=== PATIENT | male | born 1955 | race Caucasian/White ===

== ENCOUNTER 2017-09-03 11:37 | Inpatient (IN) | payer OTHER ==
[~2017-09-03] VITALS: Ht 190.5 cm; Wt 94.3 kg
[~2017-09-03 11:37] MED LIST: CLONAZEPAM0.5 MG GT; DOCU LIQUI50 MG/5 ML GT; DOXAZOSIN MESYLA2 MG GT; DUONEB 2.5-0.5 M3 ML AEROSOL; ESCITALOPRAM OX10 MG GT; HYDROMORPHONE HC2 MG PO; LABETALOL HCL100 MG GT; LISINOPRIL20 MG GT; LOSARTAN-HCTZ1 EACH PO; METRONIDAZOLE500 MG PO; MORPHINE SULFAT30 M1 PO; NICOTINE PATCH1 EAC1 TD; NOVOLOG PE100 UNITS/ SC; ONCE DAILY1 EACH PO; OXYCODONE HCL30 MG PO; ROCEPHIN 2 GM VI2 GM IM; VITAMIN D31000 UNI2 PO
[2017-09-03 12:56] LABS: BASOPHIL (%) 0.3 % (0-1); BASOPHIL COUNT 0.1 K/uL (0-0.1); EOSINOPHIL (%) 0 % (0-5); HEMATOCRIT 32.9 % (38.0-50.0); HEMOGLOBIN 10.2 G/DL (12.5-16.6); IMMATURE GRANULOCYTE (%) 0.5 % (0.0-0.7); LYMPHOCYTE (%) 6.6 % (15-42); LYMPHOCYTE COUNT 1.1 K/uL (1.0-2.8); MCH 27.2 PG (29.0-34.0); MCV 87.7 FL (86-99); MONOCYTE (%) 9.1 % (3-12); MONOCYTE COUNT 1.6 K/uL (0-0.8); NEUTROPHIL (%) 83.5 % (45-76); NEUTROPHIL COUNT 14.3 K/uL (1.8-6.4); PLATELET COUNT 356 K/uL (156-360); RBC DIS.WIDTH-CV 12.7 % (11.8-14.6); RBC DIS.WIDTH-SD 40.6 % (39-53); RED BLOOD COUNT 3.75 M/uL (4.00-5.50); WHITE BLOOD COUNT 17.1 K/uL (4.1-10.2)
[2017-09-03 13:03] LABS: ALBUMIN 2.8 g/dL (3.2-4.8); CHLORIDE 99 mEq/L (99-109); POTASSIUM 4.6 mEq/L (3.7-5.4); SODIUM 137 mEq/L (136-147)
[2017-09-03 13:06] LABS: TOTAL PROTEIN 7.6 g/dL (6.4-8.3)
[2017-09-03 13:08] LABS: TOTAL BILIRUBIN 0.4 mg/dL (0.0-1.0)
[2017-09-03 13:09] LABS: ALKALINE PHOSPHATASE 89 IU/L (3-129); CREATININE 0.8 mg/dL (0.6-1.3); GFR ESTIMATE (CALCULATED) > 59 mL/min/
[2017-09-03 13:10] LABS: UREA NITROGEN (BUN) 25 mg/dL (9-23)
[2017-09-03 13:11] LABS: AST (GOT) 12 IU/L (2-34)
[2017-09-03 13:12] LABS: ALT (GPT) 8 IU/L (3-49)
[2017-09-03 13:14] LABS: GLUCOSE 459 mg/dL (70-99)
[2017-09-03 14:01] LABS: APPEARANCE SL.HAZY ((CLEAR)); BILIRUBIN NEGATIVE; BLOOD MODERATE; COLOR YELLOW ((YELLOW)); GLUCOSE (STRIP) >=500; KETONES 5; LEUKOCYTES LARGE; NITRITE NEGATIVE; PROTEIN (STRIP) 30; SPECIFIC GRAVITY 1.022 (1.000-1.030)
[2017-09-03 14:18] LABS: EPITHELIAL CELLS NONE SEEN /HPF; MUCUS NONE SEEN /LPF; RED BLOOD CELLS 15-20 /HPF (0-5); WHITE BLOOD CELLS 30-40 /HPF (0-5)
[2017-09-03 14:19] LABS: BACTERIA RARE /HPF; UCUL ADDED? YES
[2017-09-03] MEDS ORDERED: ESCITALOPRAM OX10 MG PO (16:52)
[2017-09-03] MEDS ORDERED: SANTYL30 GM TP (16:53)
[2017-09-03] MEDS ORDERED: MORPHINE SULFAT30 M1 PO (16:54)
[2017-09-03] MEDS ORDERED: DOXAZOSIN MESYLA2 MG PO (16:55)
[2017-09-03] MEDS ORDERED: BASAGLAR K100 UNIT/1 SC (17:01)
[2017-09-03 20:35] VITALS: BP 132/63
[2017-09-03 23:41] VITALS: BP 105/58
[2017-09-04] VITALS (17 sets, daily range): BP systolic 85–143; BP diastolic 48–79
[2017-09-04 07:20] LABS: CHLORIDE 99 MEQ/L (99-109); CREATININE 0.8 MG/DL (0.6-1.3); GFR ESTIMATE (CALCULATED) > 59 mL/min/; GLUCOSE 285 mg/dL (70-99); POTASSIUM 4.5 MEQ/L (3.7-5.4); SODIUM 140 MEQ/L (136-147); UREA NITROGEN (BUN) 33 mg/dL (9-23)
[2017-09-04 07:26] LABS: BASOPHIL (%) 0.3 % (0-1); BASOPHIL COUNT 0.1 K/uL (0-0.1); EOSINOPHIL (%) 0 % (0-5); HEMATOCRIT 29.8 % (38.0-50.0); HEMOGLOBIN 8.9 G/DL (12.5-16.6); IMMATURE GRANULOCYTE (%) 0.4 % (0.0-0.7); LYMPHOCYTE COUNT 1.4 K/uL (1.0-2.8); MCH 27.1 PG (29.0-34.0); MCHC 29.9 G/DL (30.0-36.0); MCV 90.9 FL (86-99); MONOCYTE (%) 9.1 % (3-12); MONOCYTE COUNT 1.6 K/uL (0-0.8); NEUTROPHIL (%) 82.2 % (45-76); NEUTROPHIL COUNT 14.4 K/uL (1.8-6.4); PLATELET COUNT 372 K/uL (156-360); RBC DIS.WIDTH-CV 12.8 % (11.8-14.6); RBC DIS.WIDTH-SD 42.7 % (39-53); RED BLOOD COUNT 3.28 M/uL (4.00-5.50); WHITE BLOOD COUNT 17.5 K/uL (4.1-10.2)
[2017-09-04 07:42] LABS: HEMATOCRIT 30.8 % (38.0-50.0); HEMOGLOBIN 9.1 G/DL (12.5-16.6); MCH 26.8 PG (29.0-34.0); MCHC 29.5 G/DL (30.0-36.0); MCV 90.6 FL (86-99); PLATELET COUNT 380 K/uL (156-360); RBC DIS.WIDTH-CV 12.9 % (11.8-14.6); RBC DIS.WIDTH-SD 43.2 % (39-53); WHITE BLOOD COUNT 15.1 K/uL (4.1-10.2)
[2017-09-04 07:44] LABS: INTER. NORMALIZED RATIO 1.2
[2017-09-04 07:47] LABS: PTT 25.3 SEC (25-37)
[2017-09-04 08:07] LABS: Estimated Average Glucose 209 mg/dL (70-123); HEMOGLOBIN A1c (GLYCOHEMOGLOB) 8.9 % HGB (Below 5.7)
[2017-09-04 08:11] LABS: ALBUMIN 2.6 G/DL (3.2-4.8); CHLORIDE 99 MEQ/L (99-109); POTASSIUM 4.5 MEQ/L (3.7-5.4); SODIUM 138 MEQ/L (136-147); TOTAL BILIRUBIN 0.3 MG/DL (0.0-1.0)
[2017-09-04 08:17] LABS: ALKALINE PHOSPHATASE 82 IU/L (3-129); ALT (GPT) 10 IU/L (3-49); AST (GOT) 13 IU/L (2-34); CREATININE 0.8 MG/DL (0.6-1.3); GFR ESTIMATE (CALCULATED) > 59 mL/min/; GLUCOSE 278 mg/dL (70-99); TOTAL PROTEIN 6.4 G/DL (6.4-8.3); UREA NITROGEN (BUN) 35 mg/dL (9-23)
[2017-09-04 08:20] LABS: TROP-I INTERPRETATION NEGATIVE; TROPONIN-I < 0.01 ng/mL (0.0-0.30)
[2017-09-04 10:14] LABS: BASE EXCESS 9.4 mEq/L (-3 to +3); BICARBONATE 33.5 mEq/L (22-26); CARBOXY HGB 1.6 % (0-5); METHEMOGLOBIN 1.5 % (0-1.5); PCO2 43 mm Hg (35-45); PO2 83 mm Hg (80-100)
[2017-09-04 10:15] LABS: COMMENTS - BLOOD GASES C+A+; DEVICE VENT; FI02 70 %; MECHANICAL RATE 16 resp/min; MODE AC; PEEP 5 CM/H20; SITE RR; TIDAL VOLUME 500 ML; TOTAL RESP RATE 16 resp/min
[2017-09-05] VITALS (21 sets, daily range): BP systolic 87–145; BP diastolic 47–72
[2017-09-05 00:53] LABS: GLUCOSE 124 mg/dL (70-99)
[2017-09-05 05:50] LABS: BASOPHIL (%) 0.3 % (0-1); EOSINOPHIL (%) 0.3 % (0-5); HEMATOCRIT 27.9 % (38.0-50.0); HEMOGLOBIN 8.6 G/DL (12.5-16.6); IMMATURE GRANULOCYTE (%) 0.5 % (0.0-0.7); LYMPHOCYTE (%) 13.5 % (15-42); LYMPHOCYTE COUNT 1.9 K/uL (1.0-2.8); MCHC 30.8 G/DL (30.0-36.0); MCV 87.5 FL (86-99); MONOCYTE (%) 7.8 % (3-12); MONOCYTE COUNT 1.1 K/uL (0-0.8); NEUTROPHIL (%) 77.6 % (45-76); PLATELET COUNT 338 K/uL (156-360); RBC DIS.WIDTH-CV 12.9 % (11.8-14.6); RBC DIS.WIDTH-SD 41.4 % (39-53); RED BLOOD COUNT 3.19 M/uL (4.00-5.50); WHITE BLOOD COUNT 14.1 K/uL (4.1-10.2)
[2017-09-05 06:59] LABS: ALBUMIN 2.3 G/DL (3.2-4.8); ALKALINE PHOSPHATASE 60 IU/L (3-129); ALT (GPT) 11 IU/L (3-49); CHLORIDE 99 MEQ/L (99-109); CREATININE 0.6 MG/DL (0.6-1.3); GFR ESTIMATE (CALCULATED) > 59 mL/min/; GLUCOSE 144 mg/dL (70-99); POTASSIUM 3.9 MEQ/L (3.7-5.4); SODIUM 135 MEQ/L (136-147); TOTAL PROTEIN 6.3 G/DL (6.4-8.3); UREA NITROGEN (BUN) 28 mg/dL (9-23)
[2017-09-05 07:01] LABS: AST (GOT) 24 IU/L (2-34); TOTAL BILIRUBIN 0.4 MG/DL (0.0-1.0)
[2017-09-06] VITALS (22 sets, daily range): BP systolic 101–147; BP diastolic 52–78
[2017-09-06 06:12] LABS: BASOPHIL (%) 0.2 % (0-1); EOSINOPHIL (%) 1.2 % (0-5); EOSINOPHIL COUNT 0.2 K/uL (0-0.3); HEMATOCRIT 27.7 % (38.0-50.0); HEMOGLOBIN 8.5 G/DL (12.5-16.6); IMMATURE GRANULOCYTE (%) 0.8 % (0.0-0.7); LYMPHOCYTE COUNT 1.6 K/uL (1.0-2.8); MCH 26.8 PG (29.0-34.0); MCHC 30.7 G/DL (30.0-36.0); MCV 87.4 FL (86-99); MONOCYTE (%) 6.4 % (3-12); MONOCYTE COUNT 0.9 K/uL (0-0.8); NEUTROPHIL (%) 80.4 % (45-76); NEUTROPHIL COUNT 11.8 K/uL (1.8-6.4); PLATELET COUNT 362 K/uL (156-360); RBC DIS.WIDTH-SD 41.5 % (39-53); RED BLOOD COUNT 3.17 M/uL (4.00-5.50); WHITE BLOOD COUNT 14.6 K/uL (4.1-10.2)
[2017-09-06 06:38] LABS: CHLORIDE 102 MEQ/L (99-109); CREATININE 0.6 MG/DL (0.6-1.3); GFR ESTIMATE (CALCULATED) > 59 mL/min/; POTASSIUM 3.9 MEQ/L (3.7-5.4); SODIUM 137 MEQ/L (136-147); UREA NITROGEN (BUN) 23 mg/dL (9-23)
[2017-09-06 06:39] LABS: ALKALINE PHOSPHATASE 269 IU/L (3-129); ALT (GPT) 70 IU/L (3-49); AST (GOT) 134 IU/L (2-34); GLUCOSE 255 mg/dL (70-99); TOTAL BILIRUBIN 0.6 MG/DL (0.0-1.0); TOTAL PROTEIN 5.3 G/DL (6.4-8.3)
[2017-09-07] VITALS (23 sets, daily range): BP systolic 103–138; BP diastolic 50–64
[2017-09-07 05:26] LABS: BASOPHIL (%) 0.2 % (0-1); EOSINOPHIL (%) 1.4 % (0-5); EOSINOPHIL COUNT 0.2 K/uL (0-0.3); HEMOGLOBIN 8.4 G/DL (12.5-16.6); IMMATURE GRANULOCYTE (%) 1.4 % (0.0-0.7); LYMPHOCYTE (%) 9.9 % (15-42); LYMPHOCYTE COUNT 1.7 K/uL (1.0-2.8); MCH 27.5 PG (29.0-34.0); MCHC 31.1 G/DL (30.0-36.0); MCV 88.5 FL (86-99); MONOCYTE (%) 6.9 % (3-12); MONOCYTE COUNT 1.2 K/uL (0-0.8); NEUTROPHIL (%) 80.2 % (45-76); NEUTROPHIL COUNT 13.9 K/uL (1.8-6.4); NRBC (%) 0.1 /100 WBC (0-0); RBC DIS.WIDTH-CV 13.5 % (11.8-14.6); RBC DIS.WIDTH-SD 43.2 % (39-53); RED BLOOD COUNT 3.05 M/uL (4.00-5.50); WHITE BLOOD COUNT 17.3 K/uL (4.1-10.2)
[2017-09-07 05:51] LABS: CHLORIDE 103 MEQ/L (99-109); CREATININE 0.7 MG/DL (0.6-1.3); GFR ESTIMATE (CALCULATED) > 59 mL/min/; GLUCOSE 260 mg/dL (70-99); POTASSIUM 3.8 MEQ/L (3.7-5.4); SODIUM 135 MEQ/L (136-147); UREA NITROGEN (BUN) 24 mg/dL (9-23); VANCOMYCIN, TROUGH 19.6 MCG/ML (10-20)
[2017-09-07 05:55] LABS: PLAT.SUFFICIENCY ADEQUATE; PLATELET COUNT 330 K/uL (156-360)
[2017-09-08] VITALS (24 sets, daily range): BP systolic 102–132; BP diastolic 51–108
[2017-09-08 05:45] LABS: BASOPHIL (%) 0.4 % (0-1); BASOPHIL COUNT 0.1 K/uL (0-0.1); EOSINOPHIL (%) 1.7 % (0-5); EOSINOPHIL COUNT 0.3 K/uL (0-0.3); HEMATOCRIT 27.3 % (38.0-50.0); HEMOGLOBIN 8.3 G/DL (12.5-16.6); IMMATURE GRANULOCYTE (%) 2.2 % (0.0-0.7); LYMPHOCYTE (%) 10.4 % (15-42); LYMPHOCYTE COUNT 1.8 K/uL (1.0-2.8); MCH 26.5 PG (29.0-34.0); MCHC 30.4 G/DL (30.0-36.0); MCV 87.2 FL (86-99); MONOCYTE (%) 7.6 % (3-12); MONOCYTE COUNT 1.3 K/uL (0-0.8); NEUTROPHIL (%) 77.7 % (45-76); NEUTROPHIL COUNT 13.1 K/uL (1.8-6.4); PLATELET COUNT 423 K/uL (156-360); RBC DIS.WIDTH-CV 13.3 % (11.8-14.6); RBC DIS.WIDTH-SD 42.4 % (39-53); RED BLOOD COUNT 3.13 M/uL (4.00-5.50); WHITE BLOOD COUNT 16.8 K/uL (4.1-10.2)
[2017-09-08 06:30] LABS: CHLORIDE 103 MEQ/L (99-109); CREATININE 0.6 MG/DL (0.6-1.3); GFR ESTIMATE (CALCULATED) > 59 mL/min/; GLUCOSE 279 mg/dL (70-99); MAGNESIUM 2.1 mg/dl (1.3-2.7); PHOSPHORUS 2.4 mg/dL (2.5-4.9); POTASSIUM 3.5 MEQ/L (3.7-5.4); SODIUM 137 MEQ/L (136-147); UREA NITROGEN (BUN) 23 mg/dL (9-23)
[2017-09-08 08:10] LABS: VANCOMYCIN, TROUGH 20.8 MCG/ML (10-20)
[2017-09-09] VITALS (24 sets, daily range): BP systolic 0–125; BP diastolic 0–63
[2017-09-09 08:17] LABS: MCH 27.2 PG (29.0-34.0); MCHC 30.8 G/DL (30.0-36.0); MCV 88.4 FL (86-99); PLATELET COUNT 436 K/uL (156-360); RBC DIS.WIDTH-CV 13.5 % (11.8-14.6); RBC DIS.WIDTH-SD 43.9 % (39-53); RED BLOOD COUNT 2.94 M/uL (4.00-5.50); WHITE BLOOD COUNT 13.9 K/uL (4.1-10.2)
[2017-09-09 08:40] LABS: CHLORIDE 105 MEQ/L (99-109); CREATININE 0.6 MG/DL (0.6-1.3); GFR ESTIMATE (CALCULATED) > 59 mL/min/; GLUCOSE 278 mg/dL (70-99); MAGNESIUM 2.2 mg/dl (1.3-2.7); PHOSPHORUS 2.6 mg/dL (2.5-4.9); POTASSIUM 3.9 MEQ/L (3.7-5.4); SODIUM 137 MEQ/L (136-147); UREA NITROGEN (BUN) 21 mg/dL (9-23)
[2017-09-10] VITALS (21 sets, daily range): BP systolic 92–121; BP diastolic 47–73
[2017-09-10 05:36] LABS: BASE EXCESS 4.2 mEq/L (-3 to +3); BICARBONATE 30.2 mEq/L (22-26); CARBOXY HGB 1.6 % (0-5); METHEMOGLOBIN 1.4 % (0-1.5); PCO2 51 mm Hg (35-45); PO2 85 mm Hg (80-100); pH 7.38 (7.35-7.45)
[2017-09-10 05:37] LABS: COMMENTS - BLOOD GASES A+C+; DEVICE 840VENT; FI02 35 %; MECHANICAL RATE 14 resp/min; MODE ACVC+; PEEP 5 CM/H20; SITE RR; TIDAL VOLUME 450 ML; TOTAL RESP RATE 15 resp/min
[2017-09-10 05:38] LABS: BASOPHIL (%) 0.2 % (0-1); EOSINOPHIL (%) 1.6 % (0-5); EOSINOPHIL COUNT 0.2 K/uL (0-0.3); LYMPHOCYTE COUNT 2.1 K/uL (1.0-2.8); MCH 27.4 PG (29.0-34.0); MCHC 30.8 G/DL (30.0-36.0); MONOCYTE (%) 8.2 % (3-12); MONOCYTE COUNT 1.1 K/uL (0-0.8); NEUTROPHIL COUNT 9.4 K/uL (1.8-6.4); PLATELET COUNT 474 K/uL (156-360); RBC DIS.WIDTH-CV 13.6 % (11.8-14.6); RBC DIS.WIDTH-SD 44.4 % (39-53); RED BLOOD COUNT 2.92 M/uL (4.00-5.50); WHITE BLOOD COUNT 13.2 K/uL (4.1-10.2)
[2017-09-10 06:04] LABS: CHLORIDE 105 MEQ/L (99-109); POTASSIUM 4.4 MEQ/L (3.7-5.4); SODIUM 138 MEQ/L (136-147)
[2017-09-10 06:09] LABS: CREATININE 0.5 MG/DL (0.6-1.3); GFR ESTIMATE (CALCULATED) > 59 mL/min/; GLUCOSE 158 mg/dL (70-99); UREA NITROGEN (BUN) 22 mg/dL (9-23)
[2017-09-11] VITALS (12 sets, daily range): BP systolic 92–134; BP diastolic 44–65
[2017-09-12] VITALS (12 sets, daily range): BP systolic 86–115; BP diastolic 50–61
[2017-09-12 05:26] LABS: BASOPHIL (%) 0.4 % (0-1); BASOPHIL COUNT 0.1 K/uL (0-0.1); EOSINOPHIL (%) 1.1 % (0-5); EOSINOPHIL COUNT 0.1 K/uL (0-0.3); HEMATOCRIT 26.4 % (38.0-50.0); HEMOGLOBIN 8.1 G/DL (12.5-16.6); IMMATURE GRANULOCYTE (%) 2.9 % (0.0-0.7); LYMPHOCYTE (%) 18.7 % (15-42); LYMPHOCYTE COUNT 2.1 K/uL (1.0-2.8); MCH 27.3 PG (29.0-34.0); MCHC 30.7 G/DL (30.0-36.0); MCV 88.9 FL (86-99); MONOCYTE (%) 6.8 % (3-12); MONOCYTE COUNT 0.8 K/uL (0-0.8); NEUTROPHIL (%) 70.1 % (45-76); PLATELET COUNT 491 K/uL (156-360); RBC DIS.WIDTH-CV 13.9 % (11.8-14.6); RBC DIS.WIDTH-SD 45.2 % (39-53); RED BLOOD COUNT 2.97 M/uL (4.00-5.50); WHITE BLOOD COUNT 11.4 K/uL (4.1-10.2)
[2017-09-12 06:10] LABS: CHLORIDE 103 MEQ/L (99-109); CREATININE 0.5 MG/DL (0.6-1.3); GFR ESTIMATE (CALCULATED) > 59 mL/min/; GLUCOSE 130 mg/dL (70-99); MAGNESIUM 2.2 mg/dl (1.3-2.7); POTASSIUM 4.4 MEQ/L (3.7-5.4); SODIUM 138 MEQ/L (136-147); TRIGLYCERIDES 145 MG/DL (Normal: <150); UREA NITROGEN (BUN) 22 mg/dL (9-23)
[2017-09-12 06:18] LABS: PHOSPHORUS 4.5 mg/dL (2.5-4.9)
[2017-09-12 13:02] LABS: PTT 29.8 SEC (25-37)
[2017-09-13] VITALS (20 sets, daily range): BP systolic 88–117; BP diastolic 47–63
[2017-09-13 01:39] LABS: BASOPHIL (%) 0.2 % (0-1); EOSINOPHIL (%) 1.1 % (0-5); EOSINOPHIL COUNT 0.1 K/uL (0-0.3); HEMATOCRIT 27.3 % (38.0-50.0); HEMOGLOBIN 8.2 G/DL (12.5-16.6); IMMATURE GRANULOCYTE (%) 2.3 % (0.0-0.7); LYMPHOCYTE (%) 22.9 % (15-42); LYMPHOCYTE COUNT 2.8 K/uL (1.0-2.8); MCH 26.7 PG (29.0-34.0); MCV 88.9 FL (86-99); MONOCYTE (%) 7.8 % (3-12); NEUTROPHIL (%) 65.7 % (45-76); PLATELET COUNT 481 K/uL (156-360); RBC DIS.WIDTH-SD 45.1 % (39-53); RED BLOOD COUNT 3.07 M/uL (4.00-5.50); WHITE BLOOD COUNT 12.1 K/uL (4.1-10.2)
[2017-09-13 05:24] LABS: BASE EXCESS 6.3 mEq/L (-3 to +3); BICARBONATE 31.7 mEq/L (22-26); CARBOXY HGB 1.4 % (0-5); METHEMOGLOBIN 1.5 % (0-1.5); PCO2 50 mm Hg (35-45); PO2 94 mm Hg (80-100); pH 7.41 (7.35-7.45)
[2017-09-13 05:25] LABS: DEVICE 840; FI02 35 %; MODE AC/VC+; SITE RR
[2017-09-13 05:26] LABS: MECHANICAL RATE 14 resp/min; PEEP 8 CM/H20; TIDAL VOLUME 450 ML; TOTAL RESP RATE 16 resp/min
[2017-09-13 08:26] LABS: PTT 51.8 SEC (25-37)
[2017-09-13 13:19] LABS: PTT 54.5 SEC (25-37)
[2017-09-13 19:44] LABS: PTT 52.2 SEC (25-37)
[2017-09-14] VITALS (24 sets, daily range): BP systolic 66–126; BP diastolic 31–68
[2017-09-14 05:03] LABS: CHLORIDE 106 mEq/L (99-109); POTASSIUM 4.5 mEq/L (3.7-5.4); SODIUM 139 mEq/L (136-147)
[2017-09-14 05:11] LABS: PHOSPHORUS 2.9 mg/dL (2.5-4.9)
[2017-09-14 05:17] LABS: GLUCOSE 84 mg/dL (70-99)
[2017-09-14 05:21] LABS: CREATININE 0.6 mg/dL (0.6-1.3); GFR ESTIMATE (CALCULATED) > 59 mL/min/
[2017-09-14 05:22] LABS: UREA NITROGEN (BUN) 21 mg/dL (9-23)
[2017-09-14 06:28] LABS: VANCOMYCIN, TROUGH 23.8 MCG/ML (10-20)
[2017-09-14 11:43] LABS: PTT 61.2 SEC (25-37)
[2017-09-15] VITALS (16 sets, daily range): BP systolic 99–146; BP diastolic 48–67
[2017-09-15 06:24] LABS: HEMATOCRIT 25.1 % (38.0-50.0); HEMOGLOBIN 7.7 G/DL (12.5-16.6); MCH 27.3 PG (29.0-34.0); MCHC 30.7 G/DL (30.0-36.0); RBC DIS.WIDTH-CV 14.1 % (11.8-14.6); RBC DIS.WIDTH-SD 45.7 % (39-53); RED BLOOD COUNT 2.82 M/uL (4.00-5.50); WHITE BLOOD COUNT 8.6 K/uL (4.1-10.2)
[2017-09-15 07:01] LABS: PLAT.SUFFICIENCY ADEQUATE; PLATELET CLUMPS PRESENT - PLATELET COUNT APPEARS ADQ.
[2017-09-15 07:02] LABS: PLATELET COUNT UNABLE TO REPORT K/uL (156-360)
[2017-09-16] VITALS (23 sets, daily range): BP systolic 106–147; BP diastolic 51–70
[2017-09-17] VITALS (24 sets, daily range): BP systolic 78–133; BP diastolic 40–64
[2017-09-17 06:10] LABS: HEMATOCRIT 23.1 % (38.0-50.0); HEMOGLOBIN 7.2 G/DL (12.5-16.6); MCH 27.6 PG (29.0-34.0); MCHC 31.2 G/DL (30.0-36.0); MCV 88.5 FL (86-99); RBC DIS.WIDTH-CV 14.3 % (11.8-14.6); RBC DIS.WIDTH-SD 45.7 % (39-53); RED BLOOD COUNT 2.61 M/uL (4.00-5.50)
[2017-09-17 06:15] LABS: PLATELET COUNT 441 K/uL (156-360)
[2017-09-18] VITALS (17 sets, daily range): BP systolic 81–113; BP diastolic 42–60
[2017-09-19] VITALS: BP 94/46
[2017-09-19 02:00] VITALS: BP 83/41
[2017-09-19 04:00] VITALS: BP 98/48
[2017-09-19 06:00] VITALS: BP 118/63
== END 2017-09-19 06:08 | DRG 28 ==
LOC: EME 11:37 → 4WEST 16:15 → EDOF 16:15 → CANRESERV 16:30 → ENRESERV 16:30 → 5SOUTH 20:33 → 4WEST 09-04 07:13
PROVIDERS: Emergency Medicine; Hospitalist; Internal Medicine Critical Care Medicine; Internal Medicine Pulmonary Disease; Surgery
DX: G06.1 Intraspinal abscess and granuloma (principal); G95.11 Acute infarction of spinal cord (embolic) (nonembolic); J15.212 Pneumonia due to Methicillin resistant Staphylococcus aureus; G93.40 Encephalopathy, unspecified; J96.20 Acute and chronic respiratory failure, unspecified whether with hypoxia or hypercapnia; Z66 Do not resuscitate; Z51.5 Encounter for palliative care; G82.52 Quadriplegia, C1-C4 incomplete; I26.99 Other pulmonary embolism without acute cor pulmonale; M46.22 Osteomyelitis of vertebra, cervical region; J98.11 Atelectasis; E46 Unspecified protein-calorie malnutrition; F33.9 Major depressive disorder, recurrent, unspecified; N39.0 Urinary tract infection, site not specified; I69.359 Hemiplegia and hemiparesis following cerebral infarction affecting unspecified side; Z99.11 Dependence on respirator [ventilator] status; L02.11 Cutaneous abscess of neck; R78.81 Bacteremia; D62 Acute posthemorrhagic anemia; G89.4 Chronic pain syndrome; E11.65 Type 2 diabetes mellitus with hyperglycemia; L89.150 Pressure ulcer of sacral region, unstageable; E87.6 Hypokalemia; L89.320 Pressure ulcer of left buttock, unstageable; I10 Essential (primary) hypertension; R13.10 Dysphagia, unspecified; M48.02 Spinal stenosis, cervical region; R33.9 Retention of urine, unspecified; Z99.81 Dependence on supplemental oxygen; Z79.4 Long term (current) use of insulin; Z89.412 Acquired absence of left great toe; Z87.891 Personal history of nicotine dependence; Z93.1 Gastrostomy status; Z86.61 Personal history of infections of the central nervous system; I69.391 Dysphagia following cerebral infarction; Z79.51 Long term (current) use of inhaled steroids; Z80.9 Family history of malignant neoplasm, unspecified
CPT/HCPCS: 31500; 36600; 70450; 71010; 71020; 71275; 72125; 72156; 80048; 80053; 80202; 81003; 82803; 82948; 83036; 83605; 83735; 84100; 84478; 84484; 84999; 85025; 85027; 85610; 85730; 87040; 87070; 87075; 87077; 87086; 87106; 87147; 87186; 87205; 87641; 87801; 92950; 93005; 93306; 94002; 94003; 94640; 94640 76; 94760; 94799; 99202; 99281; 99285; C1713; C1753; J0692; J1170; J1650; J1815; J1940; J2060; J2250; J2270; J2370; J2704; J3010; J3370; J7030; J7050; S0030